=== PATIENT | female | born 1950 | race Caucasian/White ===

== ENCOUNTER 2021-08-03 10:12 | Day surgery (SDC) | payer MEDICARE, BC ==
[~2021-08-03 10:12] MED LIST: Bupivacaine 0.5% 50 ML MDV ONE; Lactated Ringers 1,000 ML IV SCH
[2021-08-03] MEDS ORDERED: fentaNYL 100 MCG/2 ML SDV ONE (11:06)
[2021-08-03] MEDS ORDERED: Propofol 200 MG/20 ML SDV ONE ×2 (11:06→12:35)
[2021-08-03] MEDS ORDERED: Midazolam 1 MG/ML 2 ML SDV ONE (11:06)
[2021-08-03] MEDS ORDERED: ceFAZolin 2 GM in Premix Bag 1 BAG IV ONE (11:15)
[2021-08-03] MEDS ORDERED: Bupivacaine 0.5% 50 ML MDV INJECT ONE (12:38)
[2021-08-03] MEDS ORDERED: Ondansetron 4 MG/2 ML SDV IVPUSH ONE (14:19)
[2021-08-03 16:13] VITALS: BP 162/93; PULSE 61
--- NOTE | 2021-08-03 20:08 | OR ---
DATE OF PROCEDURE: 08/03/2021 SURGEON: Yifan Lynn DPM WORKFORCE CONSULTANT: None. PREOPERATIVE DIAGNOSIS: Painful hardware, right foot. POSTOPERATIVE DIAGNOSIS: Painful hardware, right foot. PROCEDURE: Hardware removal, right foot. ANESTHESIA: Local with IV sedation. HEMOSTASIS: Obtained with an ankle tourniquet on the right ankle at 250 mmHg. ESTIMATED BLOOD LOSS: 5 mL. MATERIALS: None. INJECTABLES: A total of 20 mL of Marcaine 0.5% plain was injected into the right foot. PATHOLOGY: None. CONDITION: Stable. INDICATIONS FOR SURGERY: Painful hardware, right foot that was unresponsive to conservative measures. PROCEDURE IN DETAIL: Patient was brought to the operating room, placed on the operating table in supine position. Following IV sedation, the right foot was then anesthetized with 20 mL of Marcaine 0.5% plain. The right foot was then scrubbed, prepped, and draped in usual aseptic manner, raised to 60 degrees for hemostasis, and exsanguinated using an Esmarch bandage. Tourniquet was inflated. Foot was lowered onto the table. Skin incision was made on the dorsomedial aspect of the right foot along the old incision from the bunionectomy. Incisions were deepened through subcutaneous tissues with care taken to identify and retract all vital neurovascular structures. Following subcutaneous dissection, the plate and screws on the top of the 1st metatarsal were identified and removed with a screwdriver and [place] elevator and rongeur. We then found the cerclage wire and removed all of the cerclage wire that was exposed. Some of the cerclage wire was within the bone itself, so this was left in place because removing it would be more traumatic than leaving it within the bone. We then removed the screw on the medial side of the right 1st metatarsal along with a washer. We then checked visually and fluoroscopically and found no hardware other than the interosseous cerclage wire was left, so then we flushed out the incision with copious amounts of sterile saline and deep closure was done with 3-0 Vicryl, subcutaneous closure with 3-0 Vicryl, and skin closure with 3-0 nylon in a horizontal mattress configuration. The right foot was then dressed with Xeroform, 4x4s, Kerlix, and Coban. Patient was returned to recovery room with vital signs stable and vascular status intact to both feet. Patient was given instructions to rest, ice, and elevate the right foot and weight bear on the heel only and only with the Cam boot and ambulate with crutches for assistance, and to return to clinic for followup in one week with Rayray Sutton, at which time she will be re-evaluated and followup in two weeks with Dr. Lynn. The patient was agreeable to this. The patient was told to go to the emergency room immediately if she has any nausea, vomiting, fever, chills, chest pain, calf pain, or difficulty breathing. Yifan Lynn DPM /[id number]
== END 2021-08-03 15:50 | disposition home or self-care (01) ==
LOC: JP.SDS 10:12
PROVIDERS: ATTEND Podiatrist Foot & Ankle Surgery
DX: T84.84XA Pain due to internal orthopedic prosthetic devices, implants and grafts, initial encounter (principal); I10 Essential (primary) hypertension; G43.909 Migraine, unspecified, not intractable, without status migrainosus; E66.3 Overweight; E11.9 Type 2 diabetes mellitus without complications; Z98.890 Other specified postprocedural states; Z79.899 Other long term (current) drug therapy; Z88.8 Allergy status to other drugs, medicaments and biological substances; Z91.040 Latex allergy status; Z91.030 Bee allergy status
CPT/HCPCS: 20680; J0690; J2250; J2405; J2704; J3010; J3490; J7120